=== PATIENT | female | born 1990 | race Caucasian/White ===

== ENCOUNTER 2018-06-12 01:42 | Emergency (ER) | payer SELFPAY ==
[~2018-06-12] VITALS: Ht 162.6 cm; Wt 64.0 kg
[2018-06-12] MEDS ORDERED: methadone PO (02:13)
--- NOTE | 2018-06-12 02:13 | NUR ---
PT IS ANXIOUS, MOVING AROUND BED. WILL NOT HOLD STILL, PT IS RESTLESS. BROTHER REPORTS SHE TAKES METHADONE 75 MG A DAY TO GET OFF OF HEROINE. PT USED HEROINE FOR 10 YEARS. TONIGHT PT TOOK A SUBOXONE AND THEN PATIENT BECAME RESTLESS AGITATED AND VOMITED. COMPUTER SYSTEMS HARDWARE ANALYST ON. PULSE OX ON. BROTHER AT BEDSIDE. REPORT GIVE TO KARMEN DUQUE
[2018-06-12] MEDS ORDERED: LORazepam 2 MG/ML, 1ML ONE ×3 (02:21→07:31)
[2018-06-12] MEDS ORDERED: LORazepam 2 MG/ML, 1ML IVPush ONE ×2 (02:30→03:00)
--- NOTE | 2018-06-12 02:30 | NUR ---
report from joseph assumed care of pt medicated per md order
[2018-06-12 02:54] LABS: ALANINE AMINOTRANSFERASE 63 U/L (12-78); ALBUMIN 4.2 g/dL (3.4-5.0); ANION GAP 14 mmol/L (5-15); CALCIUM 9.4 mg/dL (8.5-10.1); CHLORIDE 104 mmol/L (98-107)
[2018-06-12 02:59] LABS: ALKALINE PHOSPHATASE 104 U/L (45-117); BILIRUBIN,TOTAL 0.6 mg/dL (0.2-1.0); TOTAL PROTEIN 8.1 g/dL (6.4-8.2)
[2018-06-12 03:09] LABS: SALICYLATE LEVEL < 1.7 mg/dL (2.8-20.0)
[2018-06-12 03:10] LABS: ACETAMINOPHEN < 2 mcg/mL (10-30)
[2018-06-12] MEDS ORDERED: ZIPRASIDONE 20 MG INJ IM ONE ×3 (03:16→07:30)
[2018-06-12 03:19] LABS: MEAN CORPUSCULAR HEMOGLOBIN 33.6 pg (27.0-34.8); PLATELET COUNT 162 x10^3/uL (130-400); RED BLOOD COUNT 4.11 x10^6/uL (3.82-5.3); RED CELL DISTRIBUTION WIDTH 12.5 % (9.6-15.2)
[2018-06-12 03:20] LABS: BASOPHILS # (AUTO) 0.04 x10^3/uL (0-0.1); BASOPHILS % (AUTO) 1 % (0-1); EOSINOPHILS # (AUTO) 0.09 x10^3/uL (0-0.4); EOSINOPHILS % (AUTO) 1 % (1-7); LYMPHOCYTES # (AUTO) 2.66 x10^3/uL (1-3.4); LYMPHOCYTES % (AUTO) 41 % (22-44); MD MORPH REVIEW ONLY; MONOCYTES # (AUTO) 0.56 x10^3/uL (0.2-0.8); MONOCYTES % (AUTO) 9 % (2-9); NEUTROPHILS # (AUTO) 3.19 x10^3/uL (1.8-6.8); NEUTROPHILS % (AUTO) 49 % (42-75)
[2018-06-12 03:21] LABS: <PLATELET ESTIMATE> ADEQUATE; ANISOCYTOSIS 1+; LARGE PLATELETS 1+
--- NOTE | 2018-06-12 03:32 | NUR ---
pt continues to non stop move on gurney in non purposeful movements, brother at bedside keeping pt in bed, pt is nonverbal
--- NOTE | 2018-06-12 04:43 | NUR ---
pt continues to have continous unpurposeful movements, pts cousin at bs
[2018-06-12] MEDS ORDERED: POTASSIUM CHLORIDE 20 MEQ TAB.ER.PRT PO ONE (06:00)
--- NOTE | 2018-06-12 06:37 | NUR ---
PT CONTINUES TO MOVE ABOUT IN BED COUSIN AT BEDSIDE WITH PT
--- NOTE | 2018-06-12 07:02 | NUR ---
Report from Mindi PERAZA.
--- NOTE | 2018-06-12 07:27 | NUR ---
Called night nurse and verified that night nurse gave 10 mg Geodon x two. She confirmed this.
--- NOTE | 2018-06-12 07:29 | NUR ---
Unable to get BP on Pt due to her constant moving around. Pt is connected to the monitor. Family at bedside.
[2018-06-12] MEDS ORDERED: LORazepam 2 MG/ML, 1ML IM ONE (07:30)
--- NOTE | 2018-06-12 07:49 | NUR ---
PT MEDICATED PER ORDER. FAMILY HAD TO LEAVE FOR AN HOUR. TECH AT BEDSIDE TO BE A SITTER.
--- NOTE | 2018-06-12 07:53 | NUR ---
LURDES HELD, PT UNABLE TO WAKE UP ENOUGH TO TAKE A PILL.
--- NOTE | 2018-06-12 08:27 | NUR ---
PT MOVED TO ROOM 3, REPORT GIVEN TO PALLAVI PERAZA. PT IS CONNECTED TO THE MONITOR. VS STABLE. SIDE RAILS UP. SITTER AT BEDSIDE.
--- NOTE | 2018-06-12 08:28 | NUR ---
received report from Arina, assumed care after transfer to Rm 03. pt laying restlessly on gurney with eyes closed, NAD, no needs at this time, sitter at BS.
--- NOTE | 2018-06-12 09:06 | NUR ---
pt continues to restlessly lay on gurney with eyes closed, NAD, no needs at this time, sitter at BS.
[2018-06-12] MEDS ORDERED: NS + 40MEQ KCL 1,000 ML IV SCH (09:30)
[2018-06-12] MEDS ORDERED: NS + 40MEQ KCL 1,000 ML IV ONE (09:30)
--- NOTE | 2018-06-12 09:30 | NUR ---
pt very restless (thrashing) & becomes agitated with any staff interaction requiring 2-3 staff assist to provide care, pt does not follow simple commands, unable to flush PIV (+occluded); no new access attempted, 40mEq KCl/1000ml NS held, will await pt MTF to provide PO fluids per ERP request.
--- NOTE | 2018-06-12 10:01 | NUR ---
pt laying restlessly on gurney with eyes closed, NAD, no needs at this time, & sitter at BS.
--- NOTE | 2018-06-12 11:02 | NUR ---
pt continues to restlessly lay on gurney with eyes closed, NAD, no needs at this time, family & sitter at BS.
--- NOTE | 2018-06-12 12:03 | NUR ---
pt laying restlessly on gurney with eyes closed, NAD, no needs at this time, family & sitter at BS.
--- NOTE | 2018-06-12 13:15 | NUR ---
BREAK RN: PT EASY TO AROUSE, ANSWERS QUESTIONS WELL WHEN FULLY AWAKENED. AMBULATING WELL. PT HAS BEEN CLEARED FOR DISCHARGE; DC'D INTO CARE OF AUNT.
[2018-06-12 13:16] VITALS: BP 110/83
== END 2018-06-12 13:17 | disposition home or self-care (01) ==
LOC: ED 03:24
DX: F41.9 Anxiety disorder, unspecified (principal); F11.129 Opioid abuse with intoxication, unspecified; Z72.9 Problem related to lifestyle, unspecified
CPT/HCPCS: 36415; 80053; 80307; 80329; 84703; 85025; 96372; 96374; 99283; J2060; J3486; G0480

== ENCOUNTER 2018-09-01 21:31 | Emergency (ER) | payer MEDICAID ==
[~2018-09-01] VITALS: Ht 162.6 cm; Wt 59.5 kg
[~2018-09-01 21:31] MED LIST: methadone PO
[2018-09-01 21:32] VITALS: BP 135/94
[2018-09-01] MEDS ORDERED: IBUPROFEN 600 MG TABLET ONE (21:48)
[2018-09-01] MEDS ORDERED: ONDANSETRON ODT 4 MG ONE (21:48)
[2018-09-01] MEDS ORDERED: ONDANSETRON ODT 4 MG PO ONE (22:00)
[2018-09-01] MEDS ORDERED: IBUPROFEN 600 MG TABLET PO ONE (22:00)
--- NOTE | 2018-09-01 22:02 | NUR ---
PT HERE FOR INCREASED VB. PT BELEIVES SHE IS POSSIBLY. PT ON ARRIVAL IS VERY NERVOUS AND JITTERY. REPORTS RECENT RELAPSE ON HEROINE. PT DENIES ANY TRUAMA OR SEXUAL ASSULT. PT DENEIS ANY MEDICAL HX. PT RESTING IN BED.
[2018-09-01 22:03] LABS: BASOPHILS # (AUTO) 0.05 x10^3/uL (0-0.1); BASOPHILS % (AUTO) 1 % (0-1); EOSINOPHILS % (AUTO) 1 % (1-7); LYMPHOCYTES # (AUTO) 1.99 x10^3/uL (1-3.4); LYMPHOCYTES % (AUTO) 22 % (22-44); MD NO; MEAN CORPUSCULAR HEMOGLOBIN 34.6 pg (27.0-34.8); MEAN CORPUSCULAR HGB CONC 34.2 g/dL (32.4-35.8); MEAN CORPUSCULAR VOLUME 101.1 fL (80-100); MEAN PLATELET VOLUME 10.6 fL (7.4-10.4); MONOCYTES # (AUTO) 0.42 x10^3/uL (0.2-0.8); MONOCYTES % (AUTO) 5 % (2-9); NEUTROPHILS # (AUTO) 6.52 x10^3/uL (1.8-6.8); NEUTROPHILS % (AUTO) 72 % (42-75); PLATELET COUNT 221 x10^3/uL (130-400); RED BLOOD COUNT 4.37 x10^6/uL (3.82-5.3); RED CELL DISTRIBUTION WIDTH 13.6 % (9.6-15.2)
--- NOTE | 2018-09-01 22:04 | NUR ---
PT MEDICATED FOR PAIN.
[2018-09-01 22:16] LABS: ANION GAP 7 mmol/L (5-15); CALCIUM 9.6 mg/dL (8.5-10.1); CHLORIDE 107 mmol/L (98-107); CREATININE 0.92 mg/dL (0.55-1.02)
--- NOTE | 2018-09-01 23:12 | NUR ---
UA COLLECTED AND SENT TO LAB
[2018-09-01 23:29] LABS: CULTURE INDICATED? YES; MICROSCOPIC INDICATED
--- NOTE | 2018-09-02 00:24 | NUR ---
Patient/Caregiver given discharge instructions and they have confirmed that they understand the instructions. Patient ambulatory with steady gait.
== END 2018-09-02 00:32 | disposition home or self-care (01) ==
LOC: ED 22:03
DX: N93.9 Abnormal uterine and vaginal bleeding, unspecified (principal); R10.2 Pelvic and perineal pain; F11.10 Opioid abuse, uncomplicated; F15.10 Other stimulant abuse, uncomplicated; F17.200 Nicotine dependence, unspecified, uncomplicated; Z88.6 Allergy status to analgesic agent
CPT/HCPCS: 36415; 80048; 81001; 82040; 84703; 85025; 86901; 87086; 93005; 99284